=== PATIENT | male | born 1985 | race Caucasian/White ===

== ENCOUNTER 2021-03-08 13:05 | Emergency (ER) | payer OTHER ==
[~2021-03-08] VITALS: Ht 167.6 cm; Wt 127.6 kg
[2021-03-08 13:38] VITALS: BP 135/81
--- NOTE | 2021-03-08 14:00 | NUR ---
BIB SELF C/O 6 MID BACK PAIN S/P LIFTING LARGE BOXS OF FUNITURES SHOW AT WORK X 3 DAYS. DENIES DYSURIA.PMH: DENIES.
[2021-03-08] MEDS ORDERED: KETOROLAC 60 MG/2 ML VIAL IM ONE (14:20)
[2021-03-08] MEDS ORDERED: CYCL-711 PO (15:16)
[2021-03-08] MEDS ORDERED: IBUP-2218 PO (15:16)
[2021-03-08 15:25] VITALS: BP 139/83
--- NOTE | 2021-03-08 15:25 | NUR ---
Patient discharged with v/s stable. Written and verbal after care instructions given and explained. Patient alert, oriented and verbalized understanding of instructions. Ambulatory with steady gait. All questions addressed prior to discharge. ID band removed. Patient advised to follow up with PMD. Rx of flexeril & ibuprofen given. Patient educated on indication of medication including possible reaction and side effects. Opportunity to ask questions provided and answered.
== END 2021-03-08 15:25 | disposition home or self-care (01) ==
LOC: MED 13:05
DX: S29.012A Strain of muscle and tendon of back wall of thorax, initial encounter (principal); X50.0XXA Overexertion from strenuous movement or load, initial encounter; Y92.89 Other specified places as the place of occurrence of the external cause; Y93.89 Activity, other specified; Y99.0 Civilian activity done for income or pay
CPT/HCPCS: 81002; 96372; 99283; J1885

== ENCOUNTER 2021-03-17 17:41 | Emergency (ER) | payer OTHER ==
[~2021-03-17 17:41] MED LIST: CYCL-711 PO; IBUP-2218 PO
== END 2021-03-17 18:24 | disposition left against medical advice (07) ==
LOC: MED 17:41
DX: Z53.21 Procedure and treatment not carried out due to patient leaving prior to being seen by health care provider (principal)

== ENCOUNTER 2021-07-21 11:13 | Emergency (ER) | payer OTHER ==
[~2021-07-21] VITALS: Ht 167.6 cm; Wt 126.1 kg
[2021-07-21 11:18] VITALS: BP 129/93
--- NOTE | 2021-07-21 11:23 | NUR ---
Patient ambulated to bed 11 with steady/even gait.
--- NOTE | 2021-07-21 11:39 | NUR ---
35 Y/O MALE BIB SELF C/O TINGGLING AND DECREASED SENSATION IN THE LEFT UPPER AND LOWER EXTREMITIES. FULL ROM OF THE EXTREMITIES, BIOPROCESS ENGINEER LESS THAN 3 SECONDS. NEGATIVE ALLENS SIGN. PMH; DENIES ALLERGY; PENNICILLIN
--- NOTE | 2021-07-21 12:21 | NUR ---
Dylan pineda in [facility] - 07/21/21 at 1222 by LUIS MELITA NELSON BEDSIDE
--- NOTE | 2021-07-21 12:22 | NUR ---
DR TARANGO AT BEDSIDE
--- NOTE | 2021-07-21 12:25 | NUR ---
PT OFFERED SNACKS, MADE COMFORTABLE
[2021-07-21 13:15] VITALS: BP 114/88
[2021-07-21] MEDS ORDERED: IBUP-2213 PO (13:17)
[2021-07-21] MEDS ORDERED: CYCL-711 PO (13:17)
--- NOTE | 2021-07-21 13:25 | NUR ---
LEFT WRIST SPLINT APPLIED. PATIENT EDUCATED ON ADJUSTING VELCRO STRAPS NEEDED. REVERBALIZED INSTRUCTIONS SUCCESSFULLY. +PMSC BEFORE/AFTER SPLINT APPLICATION.
--- NOTE | 2021-07-21 13:25 | NUR ---
Patient discharged with v/s stable. Written and verbal after care instructions given and explained FOR CARPAL TUNNEL SYNDROME. RADICULAR PAIN. Patient alert, oriented and verbalized understanding of instructions. Ambulatory with steady gait. All questions addressed prior to discharge. ID band removed. Patient advised to follow up with PMD. Rx of FLEXERIL, IBUPROFEN given. Patient educated on indication of medication including possible reaction and side effects. Opportunity to ask questions provided and answered.
== END 2021-07-21 13:25 | disposition home or self-care (01) ==
LOC: MED 11:13
DX: M25.532 Pain in left wrist (principal); R20.2 Paresthesia of skin; M54.50 Low back pain, unspecified; Z79.899 Other long term (current) drug therapy; Z79.1 Long term (current) use of non-steroidal anti-inflammatories (NSAID); Z88.0 Allergy status to penicillin
CPT/HCPCS: 99283